=== PATIENT | female | born 1995 | race Hispanic/Latino ===

== ENCOUNTER 2022-03-27 22:03 | Emergency (ER) | payer MEDICAID ==
[~2022-03-27] VITALS: Ht 162.6 cm; Wt 127.0 kg
[~2022-03-27 22:03] MED LIST: AMOXICILLIN500 MG PO; BENADRYL 50MG C50 MG PO; LORTAB 7.57.5 MG PO; MEDDOSEPAK PO; MOTRIN800 MG PO
[2022-03-27 23:03] LABS: URINE BILIRUBIN - DIPSTICK NEGATIVE (NEGATIVE); URINE BLOOD DIPSTICK TRACE-INTACT (NEGATIVE); URINE COLOR YELLOW; URINE GLUCOSE - DIPSTICK >=1000 mg/dL (NEGATIVE); URINE KETONE NEGATIVE (NEGATIVE); URINE LEUK ESTERASE TRACE (NEGATIVE); URINE PROTEIN - DIPSTICK TRACE mg/dL (NEG-TRACE); URINE SPECIFIC GRAVITY >=1.030
[2022-03-27 23:04] LABS: URINE NITRITE - DIPSTICK NEGATIVE (Negative)
[2022-03-28] MEDS ORDERED: MONISTAT1 VA (00:31)
[2022-03-28 00:39] VITALS: BP 125/78
[2022-03-28] MEDS ORDERED: MONISTAT SOOTHING1 % VA (00:46)
== END 2022-03-28 00:48 | disposition home or self-care (01) ==
LOC: ED 22:03
PROVIDERS: Emergency Medicine
DX: B37.31 Acute candidiasis of vulva and vagina (principal)

== ENCOUNTER 2024-03-28 13:01 | Emergency (ER) | payer SELFPAY ==
[~2024-03-28] VITALS: Ht 162.6 cm; Wt 103.0 kg
[~2024-03-28 13:01] MED LIST changes: +MONISTAT SOOTHING1 % VA; +MONISTAT1 VA
[2024-03-28 13:07] VITALS: BP 122/75
[2024-03-28] MEDS ORDERED: ACETAMINOPHEN 325 MG/TAB PO ONE (13:10)
[2024-03-28 13:16] VITALS: BP 92/55
[2024-03-28 13:31] VITALS: BP 117/56
[2024-03-28] MEDS ORDERED: TAM75CAP PO ×2 (13:40→13:51)
[2024-03-28] MEDS ORDERED: OSELTAMIVIR PHOSPHATE 75 MG/TAB CAP PO ONE (13:40)
[2024-03-28 13:42] VITALS: BP 117/56
[2024-03-28 13:45] VITALS: BP 109/70
== END 2024-03-28 13:52 | disposition home or self-care (01) | DRG 195 ==
LOC: ED 13:01
DX: J10.1 Influenza due to other identified influenza virus with other respiratory manifestations (principal); Z20.822 Contact with and (suspected) exposure to COVID-19

== ENCOUNTER 2024-05-14 16:27 | Emergency (ER) | payer MEDICAID ==
[2024-05-14] VITALS (17 sets, daily range): BP systolic 81–122; BP diastolic 38–74
[~2024-05-14] VITALS: Ht 162.6 cm; Wt 99.7 kg
[~2024-05-14 16:27] MED LIST changes: +TAM75CAP PO
[2024-05-14 17:09] LABS: URINE BLOOD DIPSTICK Negative (NEGATIVE); URINE GLUCOSE - DIPSTICK Negative (NEGATIVE); URINE KETONE Trace mg/dL (NEGATIVE); URINE NITRITE - DIPSTICK Negative (Negative); URINE PH 5.5 (4.5-8.0); URINE PROTEIN - DIPSTICK 30 mg/dL (NEG-TRACE); URINE SPECIFIC GRAVITY >=1.030
[2024-05-14 17:10] LABS: URINE COLOR Yellow; URINE LEUK ESTERASE Small (NEGATIVE)
[2024-05-14 17:15] LABS: BASO% 0.4 % (0-3); EOS% 1.6 % (0-8); HEMATOCRIT 24.3 % (37.0-47.0); HEMOGLOBIN 7.4 g/dl (12.0-16.0); IMMATURE GRANULOCYTES 0.3 % (0.0-5.0); LYMPH% 19.7 % (15-41); MEAN CELL VOLUME 70.2 fL CALC (80.0-100.0); MEAN CORPUSCULAR HGB 21.4 pG CALC (26.0-32.0); MEAN CORPUSCULAR HGB CONC 30.5 g/dL CAL (32.0-36.0); MONO% 4.3 % (2-13); NEUT# 5.14 thou/uL (2.00-7.15); NEUT% 73.7 % (42-76); RED BLOOD COUNT 3.46 mill/uL (4.20-5.60); RED CELL DISTRI WIDTH 16.3 % (11.5-15.5)
[2024-05-14 17:19] LABS: URINE SQUAMOUS EPITHELIAL CELL MANY EPI/hpf (0-FEW)
[2024-05-14 17:20] LABS: URINE BACTERIA MANY hpf; URINE MUCUS FEW hpf (NONE-FEW)
[2024-05-14 17:24] LABS: ALBUMIN 3.7 g/dL (3.2-5.0); ALKALINE PHOSPHATASE 88 u/l (38-126); ANION GAP 9 (6-22 (CALC)); BILIRUBIN, TOTAL 0.5 mg/dL (0.02-1.3); BUN 14 mg/dL (7-17); BUN/CREATININE RATIO 36 (12-20 (CALC)); CHLORIDE 109 mmol/l (95-108); CREATININE 0.4 mg/dL (0.5-1.0); ESTIMATED GFR 139 ML/MIN (>=90 (CALC)); POTASSIUM 4.1 mmol/l (3.5-5.1); SGOT/AST 28 u/l (14-36); SODIUM 136 mmol/l (137-146); TOTAL PROTEIN 7.3 g/dL (6.3-8.2)
[2024-05-14 17:28] LABS: CARBON DIOXIDE 22 mmol/l (22-30)
[2024-05-14] MEDS ORDERED: SODIUM CHLORIDE 0.9% 250 ML IV ONE (18:43)
[2024-05-14] MEDS ORDERED: CEPHALEXIN MONOHYDRATE 500 MG/CAP PO ONE (19:15)
[2024-05-14] MEDS ORDERED: KEFLEX500 MG PO (19:55)
== END 2024-05-14 20:33 | disposition home or self-care (01) ==
LOC: ED 16:27
PROVIDERS: Nurse Practitioner
DX: O99.013 Anemia complicating pregnancy, third trimester (principal); D64.9 Anemia, unspecified; Z3A.29 29 weeks gestation of pregnancy; Z20.822 Contact with and (suspected) exposure to COVID-19; O23.43 Unspecified infection of urinary tract in pregnancy, third trimester; N39.0 Urinary tract infection, site not specified
CPT/HCPCS: P9016